=== PATIENT | male | born 1955 | race Caucasian/White ===

== ENCOUNTER → 2017-05-25 | Outpatient (CLI) | payer MEDICARE, BC ==
[~2017-05-25] MED LIST: ASPIRIN (CHILDR81 MG PO; ATARAX25 MG PO; CLARITIN10 MG PO; COLACE100 MG PO; CORDARONE,PACE200 MG PO; DESYREL50 MG PO; DULCOLAX10 MG R; ELIQUIS2.5 MG; FLOMAX0.4 MG PO; GLUCOPHAGE1000 MG PO; LASIX40 MG PO; LEVEMIR100 UNIT/1 SUB-Q; LIPITOR80 MG; LOPRESSOR25 MG PO; MELATONIN 5 MG1 EAC1; MILK OF MA400 MG/5 M; MIRALAX17 GM PO; NOVOLOG100 UNIT/M; PROTONIX20 MG PO; TUMS REGULAR ST1 TAB; TYLENOL325 MG; ZOLOFT100 MG PO
== END | disposition disaster alternative care site (69) ==
LOC: LFPA 12:48
DX: R60.1 Generalized edema (principal)

== ENCOUNTER 2017-06-25 02:07 | Emergency (ER) | payer MEDICARE, BC ==
--- NOTE | ~2017-06-25 | ER ---
PATIENT'S NAME: CACHORRO MARINELLI [facility] AGE: 62 Y [address] ROOM: [place] [id number] LOCATION: [facility] ADMIT DATE: 06/25/2017 ER/Outpatient Report DISCHARGE DATE: 06/25/2017 FAMILY PHYSICIAN: PHYSICIAN, NO ATTENDING PHYSICIAN: Andrew Smith Time of Arrival: 0207 hours. Time of Evaluation: 0215 hours. HISTORY OF PRESENT ILLNESS: This is a 62-year-old male. He is previously reasonably healthy. He is 2 weeks status post open coronary artery bypass grafting. He states he has been doing rehab at a local long-term. He has been having great deal of difficulty sleeping. He was given an Ambien tonight and he states he is sleeping quite well, but apparently tried to get out of bed and staff found him mildly confused on the floor in his room. PAST MEDICAL HISTORY: Significant for known coronary artery disease. PAST SURGICAL HISTORY: He had coronary artery bypass surgery 2 weeks ago. CURRENT MEDICATIONS: Please see list. REVIEW OF SYSTEMS: He states he has had a little bit of cough and mild shortness breath with exertion. He has the normal postoperative chest pain. These symptoms have been gradually improving. SOCIAL HISTORY: He is a nonsmoker. PHYSICAL EXAMINATION: GENERAL: Alert, pleasant, cooperative male, appeared to have some pain with movements, in no acute distress. SKIN: Warm and dry. VITAL SIGNS: Stable. Saturation were 92% to 95%. HEENT: Head, ears, eyes, nose, and throat revealed no trauma. Pupils equal, round, and reactive to light. Extraocular movements intact. Ear, nose, and throat are clear. NECK: Nontender. CHEST: There is no evidence of chest trauma. His sternal incision was clean and dry. The sternal wiring allowed no abnormal movement. There is no PATIENT'S NAME: CACHORRO MARINELLI [facility] AGE: 62 Y [address] ROOM: [place] [address] LOCATION: [facility] ADMIT DATE: 06/25/2017 ER/Outpatient Report DISCHARGE DATE: 06/25/2017 FAMILY PHYSICIAN: PHYSICIAN, NO ATTENDING PHYSICIAN: Andrew Smith drainage from his wounds. He did have coarse rhonchorous respirations bilaterally. ABDOMEN: Soft and nontender. EXTREMITIES: Normal. NEUROLOGIC: Normal. IMAGING STUDIES: Chest x-ray revealed small left pleural effusion as expected 2 weeks status post bypass surgery. ASSESSMENT: 1. Fall, trying to get out of bed with that injury. 2. Two weeks status post coronary artery bypass surgery. PLAN: Continue his current rehab and follow up with his regular doctor as needed. MD COLETTE DICKENS/modl /[id number] d: 06/25/17 2253 t: 06/30/17 0542, OUTPATIENT REPORT
[2017-07-06] MEDS ORDERED: TYLENOL325 MG (12:11)
[2017-07-06] MEDS ORDERED: ASPIRIN (CHILDR81 MG PO (12:11)
[2017-07-06] MEDS ORDERED: CORDARONE,PACE200 MG PO (12:11)
[2017-07-06] MEDS ORDERED: LIPITOR80 MG (12:12)
[2017-07-06] MEDS ORDERED: COLACE100 MG PO (12:13)
[2017-07-06] MEDS ORDERED: DULCOLAX10 MG R (12:13)
[2017-07-06] MEDS ORDERED: ELIQUIS2.5 MG (12:14)
[2017-07-06] MEDS ORDERED: LASIX40 MG PO (12:16)
[2017-07-06] MEDS ORDERED: ATARAX25 MG PO (12:16)
[2017-07-06] MEDS ORDERED: LEVEMIR100 UNIT/1 SUB-Q (12:17)
[2017-07-06] MEDS ORDERED: CLARITIN10 MG PO (12:18)
[2017-07-06] MEDS ORDERED: GLUCOPHAGE1000 MG PO (12:19)
[2017-07-06] MEDS ORDERED: LOPRESSOR25 MG PO (12:19)
[2017-07-06] MEDS ORDERED: MELATONIN 5 MG1 EAC1 (12:19)
[2017-07-06] MEDS ORDERED: NOVOLOG100 UNIT/M (12:21)
[2017-07-06] MEDS ORDERED: MIRALAX17 GM PO (12:21)
[2017-07-06] MEDS ORDERED: MILK OF MA400 MG/5 M (12:21)
[2017-07-06] MEDS ORDERED: ZOLOFT100 MG PO (12:22)
[2017-07-06] MEDS ORDERED: PROTONIX20 MG PO (12:22)
[2017-07-06] MEDS ORDERED: FLOMAX0.4 MG PO (12:23)
[2017-07-06] MEDS ORDERED: TUMS REGULAR ST1 TAB (12:24)
[2017-07-06] MEDS ORDERED: DESYREL50 MG PO (12:24)
== END 2017-06-25 04:02 | disposition disaster alternative care site (69) ==
LOC: GACC 02:07
DX: Z04.3 Encounter for examination and observation following other accident (principal); Z95.1 Presence of aortocoronary bypass graft; Z79.82 Long term (current) use of aspirin; Z79.899 Other long term (current) drug therapy; C44.90 Unspecified malignant neoplasm of skin, unspecified; W06.XXXA Fall from bed, initial encounter

== ENCOUNTER → 2017-06-25 | Outpatient (CLI) | payer MEDICARE, BC | END | disposition disaster alternative care site (69) | LOC: GAMB 04:17 | DX: R53.1 Weakness (principal); R41.0 Disorientation, unspecified; Z79.899 Other long term (current) drug therapy; W19.XXXA Unspecified fall, initial encounter | CPT/HCPCS: A0425; A0428; A0429 ==

== ENCOUNTER → 2017-06-25 | Outpatient (CLI) | payer MEDICARE, BC | END | disposition disaster alternative care site (69) | LOC: GAMB 04:06 | DX: R53.1 Weakness (principal); R41.0 Disorientation, unspecified; R29.6 Repeated falls; Z95.1 Presence of aortocoronary bypass graft | CPT/HCPCS: A0425; A0428 ==

== ENCOUNTER → 2017-07-12 | Outpatient (CLI) | payer MEDICARE, BC | END | disposition disaster alternative care site (69) | LOC: GAMB 09:44 | DX: F32.9 Major depressive disorder, single episode, unspecified (principal); I10 Essential (primary) hypertension; Z95.1 Presence of aortocoronary bypass graft; Z79.899 Other long term (current) drug therapy | CPT/HCPCS: A0422; A0425; A0427 ==